=== PATIENT | female | born 1935 | race Hispanic/Latino ===

== ENCOUNTER 2019-06-19 11:56 | Inpatient (IN) | payer MEDICARE ==
[~2019-06-19] VITALS: Ht 142.2 cm; Wt 82.1 kg
[2019-06-19 12:26] LABS: APPEARANCE,URINE SL CLOUDY (CLEAR); BILIRUBIN,URINE NEGATIVE (NEGATIVE); COLOR,URINE YELLOW (YELLOW); GLUCOSE, URINE (UA) NEGATIVE (NEGATIVE); KETONES,URINE 15 mg/dL (NEGATIVE); LEUKOCYTE ESTERASE ,URINE TRACE (NEGATIVE); NITRATE,URINE NEGATIVE (NEGATIVE); OCCULT BLOOD,URINE MODERATE (NEGATIVE); PROTEIN,URINE 100 mg/dL (NEGATIVE); UROBILINOGEN,URINE 0.2 mg/dL (0.2-1.0)
[2019-06-19 12:35] LABS: BASOPHILS % (AUTO) 0.1 % (0.0-5.0); HEMATOCRIT 39.7 % (36-48); LYMPHOCYTES % (AUTO) 3.3 % (21.0-51.0); MEAN CORPUSCULAR HEMOGLOBIN 28.7 pg (27.0-33.0); MEAN CORPUSCULAR HGB CONC 32.5 g/dL (32.0-36.0); MEAN CORPUSCULAR VOLUME 88.1 fL (79-99); MONOCYTES % (AUTO) 7.2 % (3.0-13.0); NEUTROPHILS % (AUTO) 89.4 % (40.0-77.0); PLATELET COUNT (AUTO) 189 K/uL (130-400); RED CELL DISTRIBUTION WIDTH 16.3 % (11.0-15.5); WHITE BLOOD COUNT (AUTO) 16.6 K/uL (4.8-10.8)
[2019-06-19 12:39] LABS: BACTERIA,URINE Few /HPF (None Seen); SQUAMOUS EPITHELIAL CELL,UR Moderate /HPF (0-2); WBC,URINE 0-1 /HPF (0-1)
[2019-06-19 12:48] LABS: POTASSIUM 3.7 mmol/L (3.5-5.1)
[2019-06-19 12:53] LABS: BILIRUBIN,TOTAL 0.6 mg/dL (0.2-1.0); TOTAL PROTEIN, SERUM 8.3 g/dL (6.0-8.3)
[2019-06-19] MEDS ORDERED: MORPHINE SULFATE 2 MG/ML 1ML SYG ONE (13:04)
[2019-06-19] MEDS ORDERED: ONDANSETRON HCL 4 MG/2 ML VIAL ONE (13:04)
[2019-06-19] MEDS ORDERED: SODIUM CHLORIDE 0.9% 1000ML 1,000 ML IV ONE ×2 (13:05→17:56)
[2019-06-19] MEDS ORDERED: IOHEXOL-350 75 ML VIAL IV ONE (13:05)
[2019-06-19] MEDS ORDERED: ZOSYN 3.375GM+NS 50ML 50 ML IV ONE (14:32)
[2019-06-19] MEDS ORDERED: ONDANSETRON HCL 4 MG/2 ML VIAL IV PRN (16:45)
[2019-06-19] MEDS ORDERED: MEPERIDINE-PF 25 MG/ML SYG IV PRN (16:45)
[2019-06-19] MEDS ORDERED: ACETAMINOPHEN 325 MG TAB PO PRN ×2 (16:45)
[2019-06-19] MEDS ORDERED: LACTULOSE 20 GM/30 ML UDCUP PO PRN (16:45)
[2019-06-19] MEDS ORDERED: MORPHINE SULFATE 4 MG/1ML SYG ONE (16:46)
[2019-06-19 17:38] LABS: HEMOGLOBIN A1C 6.7 % (4.0-6.0)
[2019-06-19] MEDS: ZOSYN 3.375GM+NS 50ML 50 ML IV SCH (21:00)
[2019-06-19] MEDS ORDERED: MEPERIDINE-PF 25 MG/ML SYG ONE (22:07)
[2019-06-20] VITALS (7 sets, daily range): BP systolic 128–150; BP diastolic 72–102
[2019-06-20] MEDS: LIDOCAINE 5% TOPICAL PATCH TP SCH ×2 (01:02→10:31)
[2019-06-20] MEDS: BACLOFEN 10 MG TABLET PO SCH ×4 (01:08→20:24)
[2019-06-20] MEDS: SODIUM CHLORIDE 0.9% 1000ML 1,000 ML IV SCH ×2 (01:30→10:32)
[2019-06-20] MEDS ORDERED: LOSA50TA64 PO (01:40)
[2019-06-20] MEDS ORDERED: ONDA4TAB4 PO (01:40)
[2019-06-20] MEDS ORDERED: METO-408 PO (01:40)
[2019-06-20] MEDS ORDERED: AMOX1TAB16 PO (01:40)
[2019-06-20] MEDS ORDERED: ESOM40CA54 PO (01:40)
[2019-06-20] MEDS ORDERED: IBUP-2070 PO (01:40)
[2019-06-20] MEDS ORDERED: METF-527 PO (01:40)
[2019-06-20] MEDS ORDERED: POLY17PO29 PO (01:40)
[2019-06-20] MEDS ORDERED: KETOROLAC TROMETHAMINE 30MG/ML IM PRN (08:45)
[2019-06-20] MEDS: ENOXAPARIN SODIUM 40 MG/0.4 ML SYRINGE SQ SCH (09:00)
[2019-06-20 09:34] LABS: HEMATOCRIT 36.4 % (36-48); MEAN CORPUSCULAR HEMOGLOBIN 29.1 pg (27.0-33.0); MEAN CORPUSCULAR HGB CONC 33.4 g/dL (32.0-36.0); MEAN CORPUSCULAR VOLUME 87.1 fL (79-99); NUCLEATED RED BLOOD CELLS 0.1 % (0.0-0.19); PLATELET COUNT (AUTO) 164 K/uL (130-400); RED BLOOD CELL COUNT(AUTO) 4.17 MIL/uL (4.00-5.50); RED CELL DISTRIBUTION WIDTH 15.9 % (11.0-15.5); WHITE BLOOD COUNT (AUTO) 9.7 K/uL (4.8-10.8)
[2019-06-20 09:54] LABS: CARBON DIOXIDE 29 mmol/L (21-32); CHLORIDE 100 mmol/L (101-111); CREATININE 0.6 mg/dL (0.5-1.5); GLOMERULAR FILTR. RATE CALC 101 mL/min (>60); GLUCOSE,RANDOM 186 mg/dL (70-105); POTASSIUM 3.4 mmol/L (3.5-5.1); SODIUM SERUM 140 mmol/L (136-145); UREA NITROGEN, BLOOD 12 mg/dL (7-18)
[2019-06-20 09:58] LABS: ALANINE AMINOTRANSFERASE 26 U/L (12-78); ALBUMIN 3.4 g/dL (3.5-5.0); AMYLASE 32 U/L (25-115); ASPARTATE AMINOTRANSFERASE 20 U/L (10-37); BILIRUBIN,TOTAL 0.7 mg/dL (0.2-1.0); CREATINE KINASE, TOTAL 55 U/L (21-232); LIPASE 75 U/L (114-286); TOTAL PROTEIN, SERUM 6.9 g/dL (6.0-8.3)
[2019-06-20 10:13] LABS: BAND NEUTROPHILS % (MANUAL) 1 % (0-2); LYMPHOCYTES % (MANUAL) 3 % (22-44); MONOCYTES % (MANUAL) 12 % (2-9); SEGMENTED NEUTROPHILS % 84 % (40-70)
[2019-06-20 10:15] LABS: PLATELET MORPHOLOGY COMMENT ADEQUATE
[2019-06-20] MEDS: POLYETHYLENE GLYCOL 3350 17 GM POWD.PACK PO SCH (10:30)
[2019-06-20] MEDS: ZOSYN 3.375GM+NS 50ML 50 ML IV SCH ×2 (10:30→20:24)
[2019-06-20] MEDS: METOPROLOL TARTRATE 25 MG TAB PO SCH ×2 (10:30→20:24)
[2019-06-20] MEDS: LOSARTAN 50 MG TABLET PO SCH (10:30)
[2019-06-20] MEDS: FAMOTIDINE/PF 20 MG/2 ML VIAL IV SCH (10:31)
--- NOTE | 2019-06-20 14:46 | NUR ---
DR. CLINE CALLED BACK. RECOMMENDS [facility] BRACE AND HE WILL SEE PT IN HIS OFFICE. NO FURTHER ORDERS.
[2019-06-20] MEDS: MORPHINE SULFATE 2 MG/ML 1ML SYG IVP PRN (15:22)
[2019-06-20] MEDS: CALCITONIN 3.7 ML AEROSOL NS SCH (15:22)
[2019-06-20] MEDS ORDERED: POTASSIUM CHLORIDE 20MEQ/100ML 100 ML IV PRN ×2 (17:30)
[2019-06-20] MEDS ORDERED: POTASSIUM CHLORIDE 20 MEQ ERTAB PO PRN (17:30)
--- NOTE | 2019-06-20 18:00 | NUR ---
DR. CHAKRABORTY AWARE OF CONSULT. NEW ORDERS RECEIVED AND CARRIED OUT. PATIENT NPO AFTER MINDNIGHT.
[2019-06-21] MEDS: SODIUM CHLORIDE 0.9% 1000ML 1,000 ML IV SCH ×3 (00:43→23:16)
[2019-06-21 03:35] VITALS: BP 120/84
[2019-06-21 05:41] LABS: BASOPHILS % (AUTO) 0.2 % (0.0-5.0); EOSINOPHILS % (AUTO) 0.1 % (0.0-8.0); HEMATOCRIT 35.2 % (36-48); LYMPHOCYTES % (AUTO) 10.1 % (21.0-51.0); MEAN CORPUSCULAR HEMOGLOBIN 29.6 pg (27.0-33.0); MEAN CORPUSCULAR HGB CONC 33.8 g/dL (32.0-36.0); MEAN CORPUSCULAR VOLUME 87.6 fL (79-99); MONOCYTES % (AUTO) 12.8 % (3.0-13.0); NEUTROPHILS % (AUTO) 76.8 % (40.0-77.0); NUCLEATED RED BLOOD CELLS 0.1 % (0.0-0.19); PLATELET COUNT (AUTO) 153 K/uL (130-400); RED BLOOD CELL COUNT(AUTO) 4.02 MIL/uL (4.00-5.50)
[2019-06-21 05:57] LABS: INR 1.03 (0.85-1.15); PROTHROMBIN TIME 10.8 SEC (9.6-11.6)
[2019-06-21 06:12] LABS: BILIRUBIN,TOTAL 0.7 mg/dL (0.2-1.0); CREATININE 0.5 mg/dL (0.5-1.5); TOTAL PROTEIN, SERUM 6.4 g/dL (6.0-8.3)
[2019-06-21 06:19] LABS: POTASSIUM 2.9 mmol/L (3.5-5.1)
[2019-06-21] MEDS ORDERED: LIDOCAINE HCL-MPF 1% 2ML VIAL ONE (07:24)
[2019-06-21 07:59] VITALS: BP 144/80
[2019-06-21] MEDS: ENOXAPARIN SODIUM 40 MG/0.4 ML SYRINGE SQ SCH (09:00)
[2019-06-21] MEDS: POLYETHYLENE GLYCOL 3350 17 GM POWD.PACK PO SCH (09:00)
[2019-06-21] MEDS: BACLOFEN 10 MG TABLET PO SCH ×3 (09:00→20:14)
[2019-06-21] MEDS: LIDOCAINE 5% TOPICAL PATCH TP SCH (09:07)
[2019-06-21] MEDS: METOPROLOL TARTRATE 25 MG TAB PO SCH ×2 (09:08→20:14)
[2019-06-21] MEDS: LOSARTAN 50 MG TABLET PO SCH (09:08)
[2019-06-21] MEDS: ZOSYN 3.375GM+NS 50ML 50 ML IV SCH ×2 (09:08→20:14)
[2019-06-21] MEDS: FAMOTIDINE/PF 20 MG/2 ML VIAL IV SCH (09:08)
[2019-06-21] MEDS: MORPHINE SULFATE 2 MG/ML 1ML SYG IVP PRN (09:09)
[2019-06-21] MEDS: CALCITONIN 3.7 ML AEROSOL NS SCH (09:09)
[2019-06-21 11:09] VITALS: BP 139/77
[2019-06-21] MEDS: POTASSIUM CHLORIDE 10% ELIXIR 20 MEQ/15 ML UDCUP PO PRN ×2 (12:08→15:00)
[2019-06-21 15:57] VITALS: BP 137/70
--- NOTE | 2019-06-21 16:45 | NUR ---
INITIAL Met with pt and dtr this afternoon to discuss dcp. Per Dtr pt lives w her sister Padmaja. Prior to admission pt was using a rollator for ambulation and required assistance w ADLs. Pt has a sh bench at home and has access to [email or web address]. Per dtr they are trying to appeal her Medicaid in order to try to obtain provider services. Per dtr. pt now w compression fx and will need more assistance. Dtr states that during the day pt is alone as she and her sister work but they are not willing to consider short term SNf. She mentions that her family members are trying to coordinate so that someone can be w pt at all times. Informed pt and dtr that family needs to be avail during PT sessions so they can learn transfer techniques etc. DCP home, CM to continue to follow and wait for Md recommendations. Addendum: 06/21/19 at 1648 by PRINCE FLORENTINO CM Amended: Links added.
[2019-06-21 19:30] VITALS: BP 135/84
[2019-06-21 23:27] VITALS: BP 124/73
[2019-06-22] VITALS (14 sets, daily range): BP systolic 119–155; BP diastolic 60–89
[2019-06-22 06:21] LABS: BASOPHILS % (AUTO) 0.3 % (0.0-5.0); HEMATOCRIT 35.6 % (36-48); LYMPHOCYTES % (AUTO) 16.7 % (21.0-51.0); MEAN CORPUSCULAR HEMOGLOBIN 29.5 pg (27.0-33.0); MEAN CORPUSCULAR HGB CONC 33.6 g/dL (32.0-36.0); MEAN CORPUSCULAR VOLUME 87.8 fL (79-99); MONOCYTES % (AUTO) 12.9 % (3.0-13.0); NEUTROPHILS % (AUTO) 67.1 % (40.0-77.0); NUCLEATED RED BLOOD CELLS 0.1 % (0.0-0.19); PLATELET COUNT (AUTO) 150 K/uL (130-400); RED BLOOD CELL COUNT(AUTO) 4.06 MIL/uL (4.00-5.50); RED CELL DISTRIBUTION WIDTH 15.8 % (11.0-15.5); WHITE BLOOD COUNT (AUTO) 5.4 K/uL (4.8-10.8)
[2019-06-22 06:50] LABS: ALBUMIN 2.9 g/dL (3.5-5.0); BILIRUBIN,TOTAL 1.1 mg/dL (0.2-1.0); CREATININE 0.5 mg/dL (0.5-1.5); POTASSIUM 3.5 mmol/L (3.5-5.1); TOTAL PROTEIN, SERUM 6.3 g/dL (6.0-8.3)
[2019-06-22] MEDS ORDERED: LIDOCAINE HCL 1% MDV 50ML VIAL ONE (08:21)
[2019-06-22] MEDS ORDERED: IODIXANOL 320 MG/ML 100 ML VIAL ONE (08:21)
[2019-06-22] MEDS ORDERED: FENTANYL CITRATE PF 50 MCG/1 ML 2ML VIAL ONE (09:05)
--- NOTE | 2019-06-22 09:30 | NUR ---
PROCEDURE REPORT RECEIVED FROM DONYA CHUN ([facility]). PATIENT S/P SHANIQUA DRAIN TO RLQ BY DR. FERRER. PATIENT STABLE WITHOUT ANY C/O PAIN OR DISCOMFORT AT THIS TIME. SHANIQUA DRAIN SECURED PROPERLY. SPECIMEN OF DRAINAGE SENT TO LAB BY [facility].
[2019-06-22] MEDS: FAMOTIDINE/PF 20 MG/2 ML VIAL IV SCH (10:24)
[2019-06-22] MEDS: CALCITONIN 3.7 ML AEROSOL NS SCH (10:25)
[2019-06-22] MEDS: METOPROLOL TARTRATE 25 MG TAB PO SCH ×2 (10:25→23:15)
[2019-06-22] MEDS: LOSARTAN 50 MG TABLET PO SCH (10:25)
[2019-06-22] MEDS: POLYETHYLENE GLYCOL 3350 17 GM POWD.PACK PO SCH (10:25)
[2019-06-22] MEDS: ENOXAPARIN SODIUM 40 MG/0.4 ML SYRINGE SQ SCH (10:26)
[2019-06-22] MEDS: LIDOCAINE 5% TOPICAL PATCH TP SCH (10:26)
[2019-06-22] MEDS: ZOSYN 3.375GM+NS 50ML 50 ML IV SCH ×2 (10:29→23:15)
[2019-06-22] MEDS: BACLOFEN 10 MG TABLET PO SCH ×3 (10:29→23:15)
[2019-06-22] MEDS ORDERED: POTASSIUM CHLORIDE 20 MEQ ERTAB PO SCH (15:25)
[2019-06-22] MEDS: POTASSIUM CHLORIDE 10% ELIXIR 20 MEQ/15 ML UDCUP PO PRN ×2 (17:01→18:50)
[2019-06-22] MEDS: SODIUM CHLORIDE 0.9% 1000ML 1,000 ML IV SCH (23:20)
[2019-06-23] VITALS: BP 136/71
[2019-06-23 04:00] VITALS: BP 131/65
[2019-06-23 04:57] LABS: BASOPHILS % (AUTO) 0.2 % (0.0-5.0); EOSINOPHILS % (AUTO) 2.1 % (0.0-8.0); HEMATOCRIT 34.7 % (36-48); LYMPHOCYTES % (AUTO) 14.6 % (21.0-51.0); MEAN CORPUSCULAR HEMOGLOBIN 29.3 pg (27.0-33.0); MEAN CORPUSCULAR VOLUME 88.7 fL (79-99); MONOCYTES % (AUTO) 10.3 % (3.0-13.0); NEUTROPHILS % (AUTO) 72.8 % (40.0-77.0); PLATELET COUNT (AUTO) 150 K/uL (130-400); RED BLOOD CELL COUNT(AUTO) 3.92 MIL/uL (4.00-5.50); WHITE BLOOD COUNT (AUTO) 7.3 K/uL (4.8-10.8)
[2019-06-23 05:16] LABS: ALBUMIN 2.7 g/dL (3.5-5.0); BILIRUBIN,TOTAL 0.8 mg/dL (0.2-1.0); CREATININE 0.5 mg/dL (0.5-1.5); POTASSIUM 3.6 mmol/L (3.5-5.1); TOTAL PROTEIN, SERUM 5.9 g/dL (6.0-8.3)
[2019-06-23 08:00] VITALS: BP 133/73
[2019-06-23] MEDS: ZOSYN 3.375GM+NS 50ML 50 ML IV SCH (09:13)
[2019-06-23] MEDS: CALCITONIN 3.7 ML AEROSOL NS SCH (09:13)
[2019-06-23] MEDS: LIDOCAINE 5% TOPICAL PATCH TP SCH (09:13)
[2019-06-23] MEDS: POLYETHYLENE GLYCOL 3350 17 GM POWD.PACK PO SCH (09:13)
[2019-06-23] MEDS: LOSARTAN 50 MG TABLET PO SCH (09:14)
[2019-06-23] MEDS: FAMOTIDINE/PF 20 MG/2 ML VIAL IV SCH (09:14)
[2019-06-23] MEDS: METOPROLOL TARTRATE 25 MG TAB PO SCH (09:14)
[2019-06-23] MEDS: BACLOFEN 10 MG TABLET PO SCH ×2 (09:14→16:48)
[2019-06-23] MEDS: ENOXAPARIN SODIUM 40 MG/0.4 ML SYRINGE SQ SCH (09:15)
[2019-06-23 11:53] VITALS: BP 140/83
[2019-06-23 16:00] VITALS: BP 112/57
--- NOTE | 2019-06-23 17:15 | NUR ---
REFERRAL SENT TO [facility] ON REQUEST OF DAUGHTER JOSE STONE CONTACT MADE WITH CÉSAR HUDSON COMPLETED, [facility] SENT ACCEPTED RECD, EMS ARRANGED FOR , DC ORDER OBTAINED, CALL TO DR. CHAKRABORTY MADE RE: BILIARY DRAIN, ORDERS RECD. PT READY FRO REPORT/DISCHARGE Addendum: 06/23/19 at 1717 by AUGIE VILLEDA RN CM Amended: Links added.
== END 2019-06-23 20:52 | DRG 445 ==
LOC: EDH 11:56 → EDHIP 16:42 → UNDOADMIN 17:53 → 3AH 06-20 00:57 → EDHIP 06-20 00:57
PROVIDERS: ADMIT Internal Medicine; ATTEND Internal Medicine
PROC: 0F9430Z Drainage of Gallbladder with Drainage Device, Percutaneous Approach (ICD-10-PCS; principal; 2019-06-22)
PROC: 2W35X3Z Immobilization of Back using Brace (ICD-10-PCS; 2019-06-22)
DX: K81.0 Acute cholecystitis (principal); M80.88XA Other osteoporosis with current pathological fracture, vertebra(e), initial encounter for fracture; Z68.41 Body mass index [BMI] 40.0-44.9, adult; E66.01 Morbid (severe) obesity due to excess calories; E11.9 Type 2 diabetes mellitus without complications; E78.2 Mixed hyperlipidemia; I10 Essential (primary) hypertension; K82.8 Other specified diseases of gallbladder
CPT/HCPCS: 10030; 36415; 47490; 72100; 72190; 74177; 76705; 78226; 78227; 80053; 81001; 82150; 82550; 82948; 83036; 83605; 83690; 83735; 84132; 84145; 84484; 85025; 85610; 85651; 86140; 87040; 87070; 87076; 87088; 93005; 97039; 99291; A9537; C1894; G0378; J1644; J1650; J1885; J2175; J2270; J2405; J2543; J3010; J3480; J3490; J7030; Q9967

== ENCOUNTER → 2020-03-15 | Outpatient (CLI) | payer MEDICARE ==
[~2020-03-15] MED LIST: ESOM40CA54 PO; IBUP-2070 PO; LOSA50TA64 PO; METF-527 PO; METO-408 PO; ONDA4TAB4 PO; POLY17PO29 PO
== END | disposition home or self-care (01) ==
LOC: SHCH 10:06
PROVIDERS: ATTEND Internal Medicine Cardiovascular Disease
DX: I10 Essential (primary) hypertension (principal)
CPT/HCPCS: 93306

== ENCOUNTER 2020-11-22 16:30 | Inpatient (IN) | payer MEDICARE ==
[~2020-11-22] VITALS: Ht 152.4 cm; Wt 78.7 kg
[~2020-11-22 16:30] MED LIST changes: -POLY17PO29 PO; +POLY17PO52 PO
[2020-11-22 17:07] LABS: BASOPHILS % (AUTO) 0.1 % (0.0-5.0); EOSINOPHILS % (AUTO) 0.4 % (0.0-8.0); HEMATOCRIT 35.4 % (36-48); LYMPHOCYTES % (AUTO) 2.2 % (21.0-51.0); MEAN CORPUSCULAR HEMOGLOBIN 26.7 pg (27.0-33.0); MEAN CORPUSCULAR HGB CONC 31.6 g/dL (32.0-36.0); MEAN CORPUSCULAR VOLUME 84.5 fL (79-99); MONOCYTES % (AUTO) 10.1 % (3.0-13.0); NEUTROPHILS % (AUTO) 86.7 % (40.0-77.0); PLATELET COUNT (AUTO) 181 K/uL (130-400); RED BLOOD CELL COUNT(AUTO) 4.19 MIL/uL (4.00-5.50); RED CELL DISTRIBUTION WIDTH 15.1 % (11.0-15.5); WHITE BLOOD COUNT (AUTO) 14.2 K/uL (4.8-10.8)
[2020-11-22 17:50] LABS: CREATININE 0.7 mg/dL (0.5-1.5); POTASSIUM 3.7 mmol/L (3.5-5.1)
[2020-11-22 17:55] LABS: ALBUMIN 3.9 g/dL (3.5-5.0); BILIRUBIN,TOTAL 2.4 mg/dL (0.2-1.0); TOTAL PROTEIN, SERUM 7.3 g/dL (6.0-8.3)
[2020-11-22] MEDS ORDERED: 0.9%NACL 1000ML 1,000 ML IV ONE (18:04)
[2020-11-22 18:10] LABS: PLATELET MORPHOLOGY LARGE PLTS PRESENT
[2020-11-22] MEDS ORDERED: CEFTRIAXONE 1G VIAL ONE (18:23)
[2020-11-22] MEDS ORDERED: LEVOFLOXACIN 500 MG/D5W 100 ML 100 ML ONE (18:23)
[2020-11-22 18:27] LABS: INR 1.12 (0.85-1.15); PROTHROMBIN TIME 12.1 SEC (9.6-11.6)
[2020-11-22 18:29] LABS: PARTIAL THROMBOPLASTIN TIME 24.5 SEC (26.3-35.5)
[2020-11-23] MEDS ORDERED: LACTULOSE 20 GM/30 ML UDCUP PO PRN (01:45)
[2020-11-23] MEDS ORDERED: ONDANSETRON 4MG INJ IV PRN (01:45)
[2020-11-23] MEDS: CEFTRIAXONE 1G VIAL IVP SCH (02:15)
[2020-11-23] MEDS ORDERED: CEFTRIAXONE 1G VIAL ONE (03:23)
[2020-11-23] MEDS ORDERED: 0.9%NACL 1000ML 1,000 ML IV ONE (03:24)
[2020-11-23] MEDS ORDERED: MEROPENEM 500 MG VIAL IVP SCH (05:15)
[2020-11-23] MEDS ORDERED: MEROPENEM 500 MG VIAL ONE ×2 (05:41→20:36)
[2020-11-23 06:31] LABS: APPEARANCE,URINE CLEAR (CLEAR); BILIRUBIN,URINE NEGATIVE (NEGATIVE); COLOR,URINE YELLOW (YELLOW); GLUCOSE, URINE (UA) NEGATIVE (NEGATIVE); KETONES,URINE 40 mg/dL (NEGATIVE); LEUKOCYTE ESTERASE ,URINE NEGATIVE (NEGATIVE); NITRATE,URINE NEGATIVE (NEGATIVE); OCCULT BLOOD,URINE SMALL (NEGATIVE); PROTEIN,URINE NEGATIVE (NEGATIVE)
[2020-11-23 06:52] LABS: BASOPHILS % (AUTO) 0.5 % (0.0-5.0); EOSINOPHILS % (AUTO) 3.2 % (0.0-8.0); HEMATOCRIT 43.2 % (36-48); LYMPHOCYTES % (AUTO) 33.5 % (21.0-51.0); MEAN CORPUSCULAR HEMOGLOBIN 30.5 pg (27.0-33.0); MEAN CORPUSCULAR HGB CONC 33.6 g/dL (32.0-36.0); MEAN CORPUSCULAR VOLUME 90.8 fL (79-99); MONOCYTES % (AUTO) 9.9 % (3.0-13.0); NEUTROPHILS % (AUTO) 52.8 % (40.0-77.0); PLATELET COUNT (AUTO) 105 K/uL (130-400); RED BLOOD CELL COUNT(AUTO) 4.76 MIL/uL (4.00-5.50); RED CELL DISTRIBUTION WIDTH 12.8 % (11.0-15.5); WHITE BLOOD COUNT (AUTO) 7.3 K/uL (4.8-10.8)
[2020-11-23 07:12] LABS: ALBUMIN 3.7 g/dL (3.5-5.0); BILIRUBIN,DIRECT 0.2 mg/dL (0.0-0.3); BILIRUBIN,TOTAL 1.3 mg/dL (0.2-1.0); TOTAL PROTEIN, SERUM 6.8 g/dL (6.0-8.3)
[2020-11-23] MEDS ORDERED: ENOXAPARIN SODIUM 30 MG/0.3 ML SQ ONE (08:27)
[2020-11-23] MEDS ORDERED: FAMOTIDINE 20MG VIAL IV ONE ×2 (08:28→20:35)
[2020-11-23] MEDS ORDERED: METOPROLOL SUCCINATE 50 MG TAB.SR.24H PO ONE (08:28)
[2020-11-23] MEDS ORDERED: LOSARTAN 50 MG TABLET ONE (08:28)
[2020-11-23] MEDS ORDERED: MEROPENEM 1 GM VIAL ONE ×2 (08:29→20:35)
[2020-11-23] MEDS ORDERED: 0.9%NACL 100ML 100 ML IV ONE (08:30)
[2020-11-23 08:47] LABS: BACTERIA,URINE Rare /HPF (None Seen); WBC,URINE 0-1 /HPF (0-1)
[2020-11-23] MEDS: LOSARTAN 50 MG TABLET PO SCH (09:00)
[2020-11-23] MEDS: ENOXAPARIN SODIUM 30 MG/0.3 ML SQ SCH (09:00)
[2020-11-23] MEDS: METOPROLOL SUCCINATE 50 MG TAB.SR.24H PO SCH (09:00)
[2020-11-23] MEDS: 0.9%NACL 1000ML 1,000 ML IV SCH (16:03)
[2020-11-23] MEDS: FAMOTIDINE 20MG VIAL IV SCH (21:00)
[2020-11-23] MEDS: MEROPENEM 500 MG VIAL IVP SCH (21:00)
[2020-11-23] MEDS: INSULIN HUMULIN R 100 UNIT/ML 3ML SQ SCH (21:00)
[2020-11-24] MEDS ORDERED: CEFTRIAXONE 1G VIAL ONE (02:05)
[2020-11-24] MEDS: CEFTRIAXONE 1G VIAL IVP SCH (02:15)
[2020-11-24] MEDS: 0.9%NACL 1000ML 1,000 ML IV SCH ×2 (03:20→19:47)
[2020-11-24 04:10] VITALS: BP 160/81
[2020-11-24] MEDS: INSULIN HUMULIN R 100 UNIT/ML 3ML SQ SCH ×2 (06:03→19:55)
[2020-11-24 07:08] LABS: BASOPHILS % (AUTO) 0.3 % (0.0-5.0); EOSINOPHILS % (AUTO) 3.3 % (0.0-8.0); HEMATOCRIT 35.5 % (36-48); LYMPHOCYTES % (AUTO) 8.2 % (21.0-51.0); MONOCYTES % (AUTO) 10.2 % (3.0-13.0); NEUTROPHILS % (AUTO) 77.1 % (40.0-77.0); PLATELET COUNT (AUTO) 150 K/uL (130-400); RED BLOOD CELL COUNT(AUTO) 4.08 MIL/uL (4.00-5.50); RED CELL DISTRIBUTION WIDTH 15.3 % (11.0-15.5); WHITE BLOOD COUNT (AUTO) 6.5 K/uL (4.8-10.8)
[2020-11-24 07:25] LABS: BILIRUBIN,TOTAL 0.4 mg/dL (0.2-1.0); CREATININE 0.7 mg/dL (0.5-1.5); POTASSIUM 3.7 mmol/L (3.5-5.1); TOTAL PROTEIN, SERUM 6.5 g/dL (6.0-8.3)
[2020-11-24 07:30] VITALS: BP 128/72
[2020-11-24] MEDS: FAMOTIDINE 20MG VIAL IV SCH ×2 (10:32→19:47)
[2020-11-24] MEDS: LOSARTAN 50 MG TABLET PO SCH (10:32)
[2020-11-24] MEDS: METOPROLOL SUCCINATE 50 MG TAB.SR.24H PO SCH (10:32)
[2020-11-24] MEDS: ENOXAPARIN SODIUM 30 MG/0.3 ML SQ SCH (10:33)
[2020-11-24] MEDS: MEROPENEM 500 MG VIAL IVP SCH ×2 (10:34→19:47)
[2020-11-24 11:00] VITALS: BP 138/47
[2020-11-24 16:00] VITALS: BP 121/69
[2020-11-24 20:00] VITALS: BP 126/78
[2020-11-24 23:43] VITALS: BP 136/72
[2020-11-25 04:00] VITALS: BP 132/79
[2020-11-25 05:44] LABS: BASOPHILS % (AUTO) 0.7 % (0.0-5.0); EOSINOPHILS % (AUTO) 8.6 % (0.0-8.0); HEMATOCRIT 32.9 % (36-48); LYMPHOCYTES % (AUTO) 17.1 % (21.0-51.0); MEAN CORPUSCULAR HEMOGLOBIN 26.8 pg (27.0-33.0); MEAN CORPUSCULAR HGB CONC 30.7 g/dL (32.0-36.0); MEAN CORPUSCULAR VOLUME 87.3 fL (79-99); MONOCYTES % (AUTO) 13.7 % (3.0-13.0); PLATELET COUNT (AUTO) 156 K/uL (130-400); RED BLOOD CELL COUNT(AUTO) 3.77 MIL/uL (4.00-5.50); RED CELL DISTRIBUTION WIDTH 15.4 % (11.0-15.5); WHITE BLOOD COUNT (AUTO) 4.3 K/uL (4.8-10.8)
[2020-11-25] MEDS: INSULIN HUMULIN R 100 UNIT/ML 3ML SQ SCH ×3 (06:06→20:07)
[2020-11-25 06:15] LABS: CREATININE 0.6 mg/dL (0.5-1.5); POTASSIUM 3.4 mmol/L (3.5-5.1)
[2020-11-25 06:24] LABS: ALBUMIN 2.8 g/dL (3.5-5.0); BILIRUBIN,DIRECT 0.1 mg/dL (0.0-0.3); BILIRUBIN,TOTAL 0.4 mg/dL (0.2-1.0); TOTAL PROTEIN, SERUM 6.2 g/dL (6.0-8.3)
[2020-11-25 07:30] VITALS: BP 130/70
[2020-11-25] MEDS: METOPROLOL SUCCINATE 50 MG TAB.SR.24H PO SCH (09:00)
[2020-11-25] MEDS: ENOXAPARIN SODIUM 30 MG/0.3 ML SQ SCH (09:00)
[2020-11-25] MEDS: LOSARTAN 50 MG TABLET PO SCH (09:00)
[2020-11-25] MEDS: FAMOTIDINE 20MG VIAL IV SCH ×2 (09:43→20:14)
[2020-11-25] MEDS: MEROPENEM 500 MG VIAL IVP SCH ×2 (09:43→20:14)
[2020-11-25 11:00] VITALS: BP 141/83
[2020-11-25] MEDS: 0.9%NACL 1000ML 1,000 ML IV SCH (15:50)
[2020-11-25 16:00] VITALS: BP 127/66
[2020-11-25 20:00] VITALS: BP 155/94
[2020-11-25 23:42] VITALS: BP 127/59
[2020-11-26] MEDS: 0.9%NACL 1000ML 1,000 ML IV SCH (01:52)
[2020-11-26 04:00] VITALS: BP 128/72
[2020-11-26 04:05] LABS: BASOPHILS % (AUTO) 0.4 % (0.0-5.0); HEMATOCRIT 33.6 % (36-48); LYMPHOCYTES % (AUTO) 22.6 % (21.0-51.0); MEAN CORPUSCULAR HEMOGLOBIN 26.6 pg (27.0-33.0); MEAN CORPUSCULAR HGB CONC 30.1 g/dL (32.0-36.0); MEAN CORPUSCULAR VOLUME 88.7 fL (79-99); NEUTROPHILS % (AUTO) 53.4 % (40.0-77.0); PLATELET COUNT (AUTO) 185 K/uL (130-400); RED BLOOD CELL COUNT(AUTO) 3.79 MIL/uL (4.00-5.50); RED CELL DISTRIBUTION WIDTH 15.4 % (11.0-15.5); WHITE BLOOD COUNT (AUTO) 5.1 K/uL (4.8-10.8)
[2020-11-26 04:15] LABS: CREATININE 0.7 mg/dL (0.5-1.5); POTASSIUM 3.7 mmol/L (3.5-5.1)
[2020-11-26] MEDS: INSULIN HUMULIN R 100 UNIT/ML 3ML SQ SCH ×2 (05:41→11:30)
[2020-11-26] MEDS: ENOXAPARIN SODIUM 30 MG/0.3 ML SQ SCH (09:00)
[2020-11-26 09:05] VITALS: BP 138/98
[2020-11-26] MEDS: FAMOTIDINE 20MG VIAL IV SCH (10:18)
[2020-11-26] MEDS: METOPROLOL SUCCINATE 50 MG TAB.SR.24H PO SCH (10:19)
[2020-11-26] MEDS: LOSARTAN 50 MG TABLET PO SCH (10:19)
[2020-11-26] MEDS: MEROPENEM 500 MG VIAL IVP SCH (10:19)
[2021-02-24] MEDS ORDERED: FERROUS SULFATE PO (12:51)
[2021-02-24] MEDS ORDERED: METO-391 PO (12:51)
[2021-02-24] MEDS ORDERED: CILO50TA PO (12:51)
[2021-02-24] MEDS ORDERED: [UNRECOGNIZED DRUG - CODE] PO (12:51)
[2021-02-24] MEDS ORDERED: APIX2.5T PO (12:51)
[2021-02-24] MEDS ORDERED: VITAMIN D PO (12:51)
[2021-02-24] MEDS ORDERED: SIMV5TAB58 PO (12:51)
[2021-02-27] MEDS ORDERED: OMEP40CA21 PO (07:45)
[2021-03-02] MEDS ORDERED: DOCU100T PO (14:25)
== END 2020-11-26 14:00 | disposition home or self-care (01) | DRG 871 ==
LOC: EDH 16:30 → EDHIP 11-23 01:40 → 3BH 11-24 01:23
PROVIDERS: ADMIT Internal Medicine; ATTEND Internal Medicine
DX: A41.50 Gram-negative sepsis, unspecified (principal); K83.1 Obstruction of bile duct; N39.0 Urinary tract infection, site not specified; R74.01 Elevation of levels of liver transaminase levels; E11.9 Type 2 diabetes mellitus without complications; I10 Essential (primary) hypertension; Z20.822 Contact with and (suspected) exposure to COVID-19; E66.01 Morbid (severe) obesity due to excess calories; Z68.33 Body mass index [BMI] 33.0-33.9, adult; Z79.84 Long term (current) use of oral hypoglycemic drugs; Z79.899 Other long term (current) drug therapy; Z83.3 Family history of diabetes mellitus; Z87.440 Personal history of urinary (tract) infections; E78.2 Mixed hyperlipidemia; Z90.49 Acquired absence of other specified parts of digestive tract; K81.9 Cholecystitis, unspecified; R53.81 Other malaise
CPT/HCPCS: 36415; 71045; 76705; 78226; 80048; 80053; 80076; 81001; 82550; 82948; 83605; 84145; 84484; 85025; 85610; 85730; 87040; 87077; 87088; 87186; 87426; 93005; 97039; A9537; G0378; J0696; J1650; J1956; J2185; J3490; J7030; U0003

== ENCOUNTER 2021-11-20 16:00 | Emergency (ER) | payer MEDICARE ==
[~2021-11-20] VITALS: Ht 144.8 cm; Wt 75.3 kg
[~2021-11-20 16:00] MED LIST changes: +APIX2.5T PO; +CILO50TA PO; +DOCU100T PO; -ESOM40CA54 PO; +FERROUS SULFATE PO; -IBUP-2070 PO; -METO-408 PO; +OMEP40CA21 PO; -ONDA4TAB4 PO; -POLY17PO52 PO; +SIMV5TAB58 PO; +VITAMIN D PO; +[UNRECOGNIZED DRUG - CODE] PO
[2021-11-20 20:33] LABS: BASOPHILS % (AUTO) 0.5 % (0.0-5.0); EOSINOPHILS % (AUTO) 4.8 % (0.0-8.0); HEMATOCRIT 39.5 % (36-48); LYMPHOCYTES % (AUTO) 21.6 % (21.0-51.0); MEAN CORPUSCULAR HEMOGLOBIN 29.7 pg (27.0-33.0); MEAN CORPUSCULAR HGB CONC 31.4 g/dL (32.0-36.0); MEAN CORPUSCULAR VOLUME 94.7 fL (79-99); MONOCYTES % (AUTO) 6.7 % (3.0-13.0); NEUTROPHILS % (AUTO) 65.9 % (40.0-77.0); PLATELET COUNT (AUTO) 202 K/uL (130-400); RED BLOOD CELL COUNT(AUTO) 4.17 MIL/uL (4.00-5.50); RED CELL DISTRIBUTION WIDTH 13.7 % (11.0-15.5); WHITE BLOOD COUNT (AUTO) 7.6 K/uL (4.8-10.8)
[2021-11-20 20:46] LABS: CREATININE 0.6 mg/dL (0.5-1.5); POTASSIUM 3.8 mmol/L (3.5-5.1)
[2021-11-20 20:51] LABS: ALBUMIN 3.7 g/dL (3.5-5.0); BILIRUBIN,TOTAL 0.3 mg/dL (0.2-1.0); TOTAL PROTEIN, SERUM 6.8 g/dL (6.0-8.3)
[2021-11-20 22:31] LABS: APPEARANCE,URINE Clear (CLEAR); BILIRUBIN,URINE Negative (NEGATIVE); COLOR,URINE Yellow (YELLOW); GLUCOSE, URINE (UA) Negative (NEGATIVE); KETONES,URINE Negative (NEGATIVE); LEUKOCYTE ESTERASE ,URINE Negative (NEGATIVE); NITRATE,URINE Negative (NEGATIVE); OCCULT BLOOD,URINE Trace (NEGATIVE); PH,URINE 6.5 (5.0-8.0); PROTEIN,URINE Negative (NEGATIVE); UROBILINOGEN,URINE 0.2 mg/dL (0.2-1.0)
[2021-11-20 22:35] VITALS: BP 139/51
[2021-11-20 22:43] LABS: WBC,URINE 0-1 /HPF (0-1)
[2021-11-20 22:44] LABS: BACTERIA,URINE None Seen /HPF (None Seen); SQUAMOUS EPITHELIAL CELL,UR Few /HPF (0-2)
== END 2021-11-20 23:06 | disposition home or self-care (01) ==
LOC: EDH 16:00
DX: M17.0 Bilateral primary osteoarthritis of knee (principal); R22.43 Localized swelling, mass and lump, lower limb, bilateral; E11.9 Type 2 diabetes mellitus without complications; E66.9 Obesity, unspecified; E78.00 Pure hypercholesterolemia, unspecified; I10 Essential (primary) hypertension; J44.9 Chronic obstructive pulmonary disease, unspecified; Z79.01 Long term (current) use of anticoagulants; Z79.84 Long term (current) use of oral hypoglycemic drugs; Z79.899 Other long term (current) drug therapy; Z68.35 Body mass index [BMI] 35.0-35.9, adult
CPT/HCPCS: 36415; 71045; 80053; 81001; 83880; 84484; 85025; 93970

== ENCOUNTER 2022-05-03 16:45 | Emergency (ER) | payer MEDICARE ==
[~2022-05-03] VITALS: Ht 152.4 cm; Wt 73.9 kg
[2022-05-03] MEDS ORDERED: NITROGLYCERIN 0.4 MG SL TAB SL PRN (17:00)
[2022-05-03] MEDS ORDERED: ASPIRIN 325MG TAB PO ONE (17:00)
[2022-05-03] MEDS ORDERED: ONDANSETRON 4MG INJ IVP ONE (17:00)
[2022-05-03] MEDS ORDERED: NITROGLYCERIN 1GM OINT 1 INCH/1GM TD ONE (17:00)
[2022-05-03 17:01] LABS: BASOPHILS % (AUTO) 0.3 % (0.0-5.0); EOSINOPHILS % (AUTO) 5.5 % (0.0-8.0); HEMATOCRIT 37.8 % (36-48); LYMPHOCYTES % (AUTO) 21.3 % (21.0-51.0); MEAN CORPUSCULAR HEMOGLOBIN 28.7 pg (27.0-33.0); MEAN CORPUSCULAR HGB CONC 31.7 g/dL (32.0-36.0); MEAN CORPUSCULAR VOLUME 90.4 fL (79-99); MONOCYTES % (AUTO) 11.2 % (3.0-13.0); NEUTROPHILS % (AUTO) 61.1 % (40.0-77.0); PLATELET COUNT (AUTO) 222 K/uL (130-400); RED BLOOD CELL COUNT(AUTO) 4.18 MIL/uL (4.00-5.50); RED CELL DISTRIBUTION WIDTH 15.7 % (11.0-15.5); WHITE BLOOD COUNT (AUTO) 7.8 K/uL (4.8-10.8)
[2022-05-03 17:13] LABS: CREATININE 0.7 mg/dL (0.5-1.5); POTASSIUM 4.2 mmol/L (3.5-5.1)
[2022-05-03 17:22] LABS: ALBUMIN 3.5 g/dL (3.5-5.0); TOTAL PROTEIN, SERUM 7.1 g/dL (6.0-8.3)
[2022-05-03 17:31] LABS: B-TYPE NATRIURETIC PEPTIDE 155 pg/mL (0-100)
[2022-05-03 17:38] LABS: APPEARANCE,URINE CLEAR (CLEAR); BILIRUBIN,URINE NEGATIVE (NEGATIVE); COLOR,URINE YELLOW (YELLOW); GLUCOSE, URINE (UA) NEGATIVE (NEGATIVE); KETONES,URINE NEGATIVE (NEGATIVE); LEUKOCYTE ESTERASE ,URINE NEGATIVE (NEGATIVE); NITRATE,URINE NEGATIVE (NEGATIVE); OCCULT BLOOD,URINE NEGATIVE (NEGATIVE); PH,URINE 6.5 (5.0-8.0); PROTEIN,URINE NEGATIVE (NEGATIVE)
[2022-05-03 19:37] VITALS: BP 161/65
== END 2022-05-03 19:45 | disposition home or self-care (01) ==
LOC: EDH 16:45
DX: R07.89 Other chest pain (principal); E11.9 Type 2 diabetes mellitus without complications; I10 Essential (primary) hypertension; E66.9 Obesity, unspecified; Z68.31 Body mass index [BMI] 31.0-31.9, adult; I48.91 Unspecified atrial fibrillation; E78.00 Pure hypercholesterolemia, unspecified; Z79.899 Other long term (current) drug therapy; Z79.84 Long term (current) use of oral hypoglycemic drugs; Z98.890 Other specified postprocedural states
CPT/HCPCS: 99285; 96374; 71045; 84484 ×2; 80053; 83880; 85025; 81003; 36415; 93005; J2405

== ENCOUNTER → 2022-07-11 | Outpatient (CLI) | payer MEDICARE | END | disposition home or self-care (01) | LOC: WHH 08:10 | PROVIDERS: ATTEND Podiatrist Foot & Ankle Surgery | DX: S90.822A Blister (nonthermal), left foot, initial encounter (principal); S90.521A Blister (nonthermal), right ankle, initial encounter; L03.115 Cellulitis of right lower limb; L03.116 Cellulitis of left lower limb; I11.9 Hypertensive heart disease without heart failure; E11.40 Type 2 diabetes mellitus with diabetic neuropathy, unspecified; I70.209 Unspecified atherosclerosis of native arteries of extremities, unspecified extremity; I48.91 Unspecified atrial fibrillation; E78.00 Pure hypercholesterolemia, unspecified; E78.5 Hyperlipidemia, unspecified; M81.0 Age-related osteoporosis without current pathological fracture; K21.9 Gastro-esophageal reflux disease without esophagitis; R60.9 Edema, unspecified; E66.9 Obesity, unspecified; Z68.33 Body mass index [BMI] 33.0-33.9, adult; Z79.84 Long term (current) use of oral hypoglycemic drugs; Z79.01 Long term (current) use of anticoagulants; Z79.899 Other long term (current) drug therapy; Z98.49 Cataract extraction status, unspecified eye; X58.XXXA Exposure to other specified factors, initial encounter; Y93.89 Activity, other specified; Y92.89 Other specified places as the place of occurrence of the external cause; Y99.8 Other external cause status | CPT/HCPCS: G0463 ==